=== PATIENT | female | born 1995 | race Caucasian/White ===

== ENCOUNTER → 2020-07-29 07:23 | Outpatient (CLI) | payer OTHER, MEDICAID, SELFPAY ==
--- NOTE | 2020-07-29 | DI.MRI.S_ITS ---
PROCEDURE: MR HIP LT WO CON INDICATIONS: pain in left hip TECHNIQUE: Noncontrast coronal T1 spin echo and STIR through the bony pelvis. Coronal and axial T2 fast spin echo with fat saturation, sagittal T1 spin echo, and oblique axial T2 fast spin echo with fat saturation through the hip. COMPARISON: None. FINDINGS: Bones and joints: No fracture identified. Sacroiliac joints are unremarkable in signal intensity. There is lower lumbar spondylosis and facet arthropathy. There is a mild to moderate left hip joint effusion. There is heterogeneous ovoid T2 hypointense focus seen in the region of the inferior left hip joint space image 19/4 which is technically indeterminate, possibly loose body although recommend radiographic correlation. No evidence of osteonecrosis. Tendons and ligaments: The gluteus medius and minimus tendons appear intact, without associated muscle atrophy. Proximal iliotibial band intact. Iliopsoas tendon intact. Origin of the hamstring tendon intact. The straight and reflected heads of the rectus femoris muscle origin appear intact Ligamentum teres is not well visualized suggestive of rupture. There is ill-defined soft tissue edema in the expected location as well as adjacent presumed reactive marrow edema at the fovea. Labrum: Labrum appears intact. The alpha angle of the femur is within normal limits at less than 55 degrees. Soft tissues: There is mild edema seen within the adductor longus and brevis, suggesting low-grade strain Quadratus femoris muscle normal. Proximal sciatic neurovascular bundle appears normal adjacent to the hamstring tendons. No free pelvic fluid. Bladder normal. Genitourinary structures and bowel loops appear normal where visualized. IMPRESSION: Nonvisualized ligamentum teres highly suspicious for rupture. Associated soft tissue and reactive marrow edema. Mild to moderate left hip joint effusion. Possible loose body in the inferior joint space although recommend radiographic correlation and to clinical exam findings as this is technically indeterminate. Mild edema involving the adductor longus and brevis muscles suggestive of acute strain. Dictated by: Akhil Kaur M.D. on 07/29/2020 at 9:12 Approved by: Akhil Kaur M.D. on 07/29/2020 at 9:28
== END ==
PROVIDERS: PCP Nurse Practitioner; Referring Provider Nurse Practitioner; Visit Provider Nurse Practitioner
DX: M25.552 Pain in left hip (principal); M25.452 Effusion, left hip
CPT/HCPCS: 73721